=== PATIENT | female | born 1965 | race Caucasian/White ===

== ENCOUNTER 2020-07-01 11:47 | Inpatient (IN) | payer OTHER ==
[~2020-07-01] VITALS: Ht 160 cm; Wt 80.3 kg
--- NOTE | ~2020-07-01 | OP ---
[address] [address] OPERATIVE REPORT Name: DEBRA TALBERT Room: [address] IN M.R.#: [id number] Admission: 07/01/20 Attend Phys: Arline Felipe MD Discharge: 07/03/20 Date of : 67 Report #: [id number] THIS REPORT FOR: cc: Kevin Lawson MD, Michael S. MD Walker, Angela DO ~ DOC #: [id number] Ivan Clarke DO DATE OF SURGERY: 07/02/2020 Dr. Clarke dictating for Dr. Bing Fermin. PREOPERATIVE DIAGNOSIS: Grade 1 open left distal radius and ulna fracture. POSTOPERATIVE DIAGNOSIS: Grade 1 open left distal radius and ulna fracture. PROCEDURE: Irrigation and debridement with open reduction internal fixation of left distal radius. IMPLANTS: Arthrex distal radius plate. SURGEON: Bing Fermin DO AMPOULE FILLER: Ivan Clarke DO ANESTHESIA: General. FLUIDS: Crystalloid per anesthesia. ESTIMATED BLOOD LOSS: 10 mL. DRAINS: None. SPECIMENS: None. COMPLICATIONS: None. CONDITION: Stable to PACU. DISPOSITION: Recovery in PACU and transferred to the floor. ANTIBIOTICS: Scheduled Ancef 2 g. TOURNIQUET: Approximately 35 minutes at 250 mmHg. INDICATIONS FOR PROCEDURE: The patient is a very pleasant 55-year-old left-hand [address] [address] OPERATIVE REPORT Name: DEBRA TALBERT Room: [address]#: [id number] Admission: 07/01/20 Attend Phys: Arline Felipe MD Discharge: 07/03/20 Date of : 67 Report #: [id number] dominant female. She fell yesterday while roller skating. She presented to the [facility] ER. X-rays were obtained, which showed a displaced and angulated left distal radius and ulna fractures. She had a small 2 mm poke hole open skin wound on the volar aspect of the wrist. She underwent a closed reduction in the emergency department. She did receive IV antibiotics and a tetanus update in ER as well. She was admitted for surgery. We discussed irrigation and debridement and ORIF of the left distal radius. The risks, benefits, alternatives and possible complications were discussed, including but not limited to infection, neurovascular injury, hardware failure, loss of reduction, nonunion, malunion, need for repeat surgery, DVT, PE and anesthetic complications. The patient expressed her understanding and wished to proceed. DESCRIPTION OF PROCEDURE: The patient was met in the preoperative area. Consent was obtained both verbally and written. The correct site was marked. She was transferred to the operative suite, placed supine on the operative table. She was given benefit of general anesthesia. A well-padded tourniquet was applied to the left arm. The left upper extremity was then prepped and draped in the usual sterile fashion. A timeout was performed to confirm the correct patient, procedure and operative site. All in the room were in agreement. We started with Esmarch exsanguination and elevation of the tourniquet. We then made a volar longitudinal incision over the flexor carpi radialis. Dissection was carried down through the tendon sheath. The tendon was then taken ulnarly and dissection continued through the dorsal aspect of the tendon sheath. We then sharply dissected the pronator quadratus off the end of the distal radius. The muscle was already quite disrupted due to the fracture. We elevated the muscle using a small hankins elevator. We were able to identify the fracture site and exposed the bony ends. At this point, we performed an irrigation and debridement. The bony ends were debrided and we irrigated with a total of 3 liters of normal saline. There was no gross debris. We then turned our attention to fixation of the distal radius. We performed reduction maneuver and held this temporarily with a K-wire in a retrograde fashion through the radial styloid. We confirmed an appropriate reduction on fluoroscopic imaging. We then selected an appropriate-sized plate and placed this on to the volar aspect of the distal radius. We secured this temporarily with K-wires and took x-rays to confirm appropriate positioning of this. We then placed 3 distal screws in a locking fashion. The proximal end of the plate was sitting off bone, so that when we reduced this we increased our volar tilt. We then placed a cortical screw proximally bringing the plate down to the bone and improving our reduction. X-rays showed a good reduction. K-wires were then removed and we subsequently filled the remaining distal screws, which were all locking. The styloid screws were placed under fluoroscopic guidance. We then placed 2 additional cortical screws proximally. Final x-rays were taken and saved, which confirmed a good reduction and positioning of our plate and screws. There were no screws in the radiocarpal joint. We also confirmed that the screws were not too long dorsally. The wound was then again thoroughly irrigated. The [address] [address] OPERATIVE REPORT Name: DEBRA TALBERT Room: [address] IN M.R.#: [id number] Admission: 07/01/20 Attend Phys: Arline Felipe MD Discharge: 07/03/20 Date of : 67 Report #: [id number] subcutaneous tissue was closed with 3-0 Vicryl suture in simple interrupted inverted fashion. We used a 3-0 nylon suture for the skin. The tourniquet was let down. We placed a sterile dressing including Xeroform and 4 x 4's, followed by placement of a well-padded splint. The patient tolerated the procedure well without complication, and was transferred to the PACU in stable condition. Needle and sponge counts were correct x 2 at the end of the case. ATTESTATION: Dr. Fermin was present and scrubbed throughout all critical aspects of the case. POSTOPERATIVE CARE: The patient will stay overnight for 24 hours of postoperative antibiotics, which will be 3 doses of 2 g of Ancef. She will be nonweightbearing to the left upper extremity. We will plan for discharge home tomorrow as long as she is doing well and pain is controlled. We will have her follow up with Dr. Fermin in 2 weeks. DO ANA Armendariz/CATHY/KAYDEN By: [id number] Fermin DO /nt
[2020-07-01 11:54] VITALS: BP 134/90
[2020-07-01] MEDS ORDERED: OMEPRAZOLE40 MG PO (11:58)
[2020-07-01] MEDS ORDERED: LEVO-T100 MCG PO (11:58)
[2020-07-01] MEDS ORDERED: CANCER MED (11:59)
[2020-07-01] MEDS ORDERED: VITAMIN D3125 MC2 PO (11:59)
[2020-07-01 12:21] LABS: ABSOLUTE BASOPHILS 0.1 thou/uL (0.0-0.2); ABSOLUTE EOSINOPHILS 0.1 thou/uL (0.0-0.7); ABSOLUTE LYMPHOCYTES 2.8 thou/uL (0.8-5.3); ABSOLUTE MONOCYTES 0.5 thou/uL (0.0-1.2); ABSOLUTE NEUTROPHILS 4.5 thou/uL (1.6-8.1); BASOPHILS 1.1 %; EOSINOPHILS 0.9 %; HEMATOCRIT 40.5 % (37.0-47.0); HEMOGLOBIN 13.5 gm/dL (12.0-15.0); LYMPHOCYTES 34.7 %; MCH 27.8 pg (26.0-34.0); MCHC 33.3 g/dL (28.0-37.0); MCV 83.3 fL (80.0-100.0); MONOCYTES 6.2 %; MPV 10.7 fl. (7.2-11.1); NUCLEATED RBCS 0 /100WBC; PLATELET COUNT* 225 thou/uL (150-400); POLYS 57.1 %; RBC 4.87 mil/uL (4.20-5.00); RDW-CV 14.1 % (10.5-14.5); WBC 7.9 thou/uL (4.0-11.0)
[2020-07-01 12:28] LABS: CALCIUM 9.3 mg/dL (8.5-10.1); CREATININE 0.9 mg/dL (0.6-1.3); POTASSIUM 3.8 mmol/L (3.5-5.1)
[2020-07-01 12:32] LABS: ALBUMIN 3.7 g/dL (3.4-5.0); TOTAL BILIRUBIN 0.3 mg/dL (<0.1-1.0); TOTAL PROTEIN 7.2 g/dL (6.4-8.2)
[2020-07-01 13:24] LABS: INR 0.9; PROTIME 9.9 Seconds (9.20-11.50)
[2020-07-01 13:25] LABS: APTT < 20.0 Seconds (25.0-31.3)
[2020-07-01 16:48] LABS: URINE BILIRUBIN NEGATIVE (Negative); URINE BLOOD NEGATIVE (Negative); URINE CLARITY SL CLOUDY; URINE COLOR YELLOW; URINE GLUCOSE-RANDOM NEGATIVE (Negative); URINE KETONES NEGATIVE (Negative); URINE LEUKOCYTES-REFLEX NEGATIVE (Negative); URINE PROTEIN NEGATIVE (Negative); URINE SPECIFIC GRAVITY >= 1.030 (1.005-1.030); URINE UROBILINOGEN 0.2 E.U./dl (0.2-1.0)
[2020-07-01 16:51] LABS: URINE NITRITE-REFLEX POSITIVE (Negative)
[2020-07-01 16:53] LABS: CRYSTALS None Seen /LPF (None Seen); HYALINE CASTS 0-3 Few /LPF (None Seen); SQUAMOUS >10 Many /LPF (0-3)
[2020-07-01 16:54] LABS: BACTERIA-REFLEX >30 Many /HPF (None Seen)
[2020-07-01 16:55] LABS: MUCUS 0-3 Light strn/LPF (None Seen); URINE RBC 0-2 Rare /HPF (0-2); URINE WBC-REFLEX 0-5 Rare /HPF (0-5)
[2020-07-01 17:56] VITALS: BP 126/63
[2020-07-01 21:30] VITALS: BP 122/67
[2020-07-02 01:47] VITALS: BP 127/70
[2020-07-02 06:23] VITALS: BP 127/70
[2020-07-02 16:00] VITALS: BP 124/75
[2020-07-02 19:30] VITALS: BP 119/69
[2020-07-03 00:17] VITALS: BP 135/74
[2020-07-03 04:07] VITALS: BP 113/54
[2020-07-03 05:18] LABS: HEMATOCRIT 32.3 % (37.0-47.0); MCH 27.9 pg (26.0-34.0); MCHC 33.4 g/dL (28.0-37.0); MCV 83.6 fL (80.0-100.0); MPV 10.6 fl. (7.2-11.1); RBC 3.86 mil/uL (4.20-5.00); RDW-CV 14.2 % (10.5-14.5); WBC 6.2 thou/uL (4.0-11.0)
[2020-07-03 05:23] LABS: HEMOGLOBIN 10.8 gm/dL (12.0-15.0)
[2020-07-03 05:45] LABS: ALBUMIN 2.7 g/dL (3.4-5.0); CALCIUM 8.1 mg/dL (8.5-10.1); CREATININE 1.1 mg/dL (0.6-1.3); POTASSIUM 3.6 mmol/L (3.5-5.1); TOTAL BILIRUBIN 0.3 mg/dL (<0.1-1.0); TOTAL PROTEIN 5.9 g/dL (6.4-8.2)
[2020-07-03 07:50] VITALS: BP 150/75
[2020-07-03] MEDS ORDERED: HYDROCODON-ACE1 EAC7 PO (08:39)
[2020-07-03 13:28] VITALS: BP 150/75
--- NOTE | 2020-07-03 15:17 | EKG ---
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
== END 2020-07-03 14:20 | disposition home or self-care (01) | DRG 511 ==
LOC: M.ERS 11:47 → M.ORTHSURG 16:15 → M.TBA-ER 16:15 → M.ORTHSURG 18:06
PROVIDERS: Nurse Practitioner Family; ADMIT Internal Medicine; ATTEND Internal Medicine
PROC: 0PSJXZZ Reposition Left Radius, External Approach (ICD-10-PCS; principal; 2020-07-01)
PROC: 0PSJ04Z Reposition Left Radius with Internal Fixation Device, Open Approach (ICD-10-PCS; 2020-07-02)
DX: S52.592B Other fractures of lower end of left radius, initial encounter for open fracture type I or II (principal); E44.1 Mild protein-calorie malnutrition; R71.0 Precipitous drop in hematocrit; N30.00 Acute cystitis without hematuria; K21.9 Gastro-esophageal reflux disease without esophagitis; E03.9 Hypothyroidism, unspecified; W18.39XA Other fall on same level, initial encounter; Z20.822 Contact with and (suspected) exposure to COVID-19; Z79.899 Other long term (current) drug therapy; Z85.3 Personal history of malignant neoplasm of breast; Z92.3 Personal history of irradiation; Y93.89 Activity, other specified; Y92.89 Other specified places as the place of occurrence of the external cause; Y99.8 Other external cause status; Z68.31 Body mass index [BMI] 31.0-31.9, adult